=== PATIENT | male | born 1965 | race Caucasian/White ===

== ENCOUNTER 2017-02-11 06:19 | Emergency (ER) | payer BC, MEDICARE ==
[~2017-02-11] VITALS: Ht 177.8 cm; Wt 151.7 kg
[2017-02-11] MEDS ORDERED: ASPI-621 PO (06:38)
[2017-02-11 06:54] LABS: HEMATOCRIT 46.5 % (39.2-51.8); HEMOGLOBIN 15.5 g/dL (13.7-18.0); WHITE BLOOD COUNT 6.9 x10^3/uL (3.4-10)
[2017-02-11] MEDS ORDERED: SODIUM CHLORIDE FLUSH 10ML SYR IVF ONE (07:00)
[2017-02-11 07:06] LABS: ASPARTATE AMINO TRANSFERASE 27 U/L (15-37); BLOOD UREA NITROGEN 16 mg/dL (7-18)
[2017-02-11 07:10] LABS: IS PT STATUS REG ER OR PRE ER? YES
[2017-02-11] MEDS ORDERED: MAALOX/HYOSCYAMINE/LIDOCAINE 45 ML BTL ONE (07:29)
[2017-02-11] MEDS ORDERED: MAALOX/HYOSCYAMINE/LIDOCAINE 45 ML BTL PO ONE (07:30)
[2017-02-11] MEDS ORDERED: OMNIPAQUE 350 MG/ML, 150 ML BOTTLE ONE (08:00)
[2017-02-11 09:00] VITALS: BP 119/85
== END 2017-02-11 09:02 | disposition home or self-care (01) ==
LOC: ED 07:04
DX: R07.89 Other chest pain (principal); K21.9 Gastro-esophageal reflux disease without esophagitis
CPT/HCPCS: 36415; 71010; 71275; 80053; 83880; 84484; 85025; 85610; 85730; 93005; 99285; Q9967

== ENCOUNTER 2017-02-14 15:15 | Inpatient (IN) | payer MEDICARE ==
[~2017-02-14] VITALS: Ht 180.3 cm; Wt 149.9 kg
[~2017-02-14 15:15] MED LIST: ASPI-621 PO
[2017-02-14] MEDS ORDERED: SODIUM CHLORIDE 0.9% 1,000 ML IV ONE (15:26)
[2017-02-14] MEDS ORDERED: SODIUM CHLORIDE FLUSH 10ML SYR IVF ONE (15:30)
[2017-02-14] MEDS ORDERED: ASPIRIN 81 MG TABLET CHEW PO ONE (15:30)
[2017-02-14 15:52] LABS: HEMOGLOBIN 15.9 g/dL (13.7-18.0); WHITE BLOOD COUNT 9.7 x10^3/uL (3.4-10)
[2017-02-14 16:00] LABS: ASPARTATE AMINO TRANSFERASE 42 U/L (15-37); BLOOD UREA NITROGEN 16 mg/dL (7-18)
[2017-02-14 16:10] LABS: IS PT STATUS REG ER OR PRE ER? YES
[2017-02-14] MEDS ORDERED: ASPIRIN 81 MG TABLET CHEW ONE (16:14)
[2017-02-14] MEDS ORDERED: MAALOX/HYOSCYAMINE/LIDOCAINE 45 ML BTL ONE (16:36)
[2017-02-14] MEDS ORDERED: MAALOX/HYOSCYAMINE/LIDOCAINE 45 ML BTL PO ONE (17:00)
[2017-02-14] MEDS ORDERED: morphine SULFATE 10 MG/ML, 1ML IVPush PRN (17:30)
[2017-02-14] MEDS ORDERED: POLYETHYLENE GLYCOL 17 GM PACKET PO PRN (17:30)
[2017-02-14] MEDS ORDERED: DOCUSATE 100 MG CAPSULE PO PRN (17:30)
[2017-02-14] MEDS ORDERED: ASPIRIN 81 MG TABLET EC PO SCH (17:30)
[2017-02-14] MEDS ORDERED: HYDROcodone/APAP 5/325 TABLET PO PRN (17:30)
[2017-02-14] MEDS ORDERED: BISACODYL 10 MG SUPP PR PRN (17:30)
[2017-02-14] MEDS ORDERED: ONDANSETRON 2MG/ML, 2ML IVPush PRN (17:30)
[2017-02-14] MEDS ORDERED: ACETAMINOPHEN 325 MG TABLET PO PRN (17:30)
[2017-02-14] MEDS ORDERED: LABETALOL 5MG/ML, 20ML IVPush PRN (17:30)
[2017-02-14] MEDS: ENOXAPARIN 40 MG/0.4 ML SQ SCH (20:22)
[2017-02-14] MEDS: SODIUM CHLORIDE FLUSH 10ML SYR IVF SCH (20:22)
[2017-02-14 20:47] LABS: IS PT STATUS REG ER OR PRE ER? NO
[2017-02-14 22:42] VITALS: BP 137/85
[2017-02-15 00:57] VITALS: BP 149/96
[2017-02-15 04:02] LABS: IS PT STATUS REG ER OR PRE ER? NO
[2017-02-15] MEDS ORDERED: REGADENOSON 0.4 MG/5 ML SYRINGE ONE (08:03)
[2017-02-15 08:07] VITALS: BP 124/85
[2017-02-15] MEDS: SODIUM CHLORIDE FLUSH 10ML SYR IVF SCH ×2 (11:36→21:21)
[2017-02-15 12:09] VITALS: BP 149/90
[2017-02-15 19:59] VITALS: BP 127/85
[2017-02-15] MEDS: ENOXAPARIN 40 MG/0.4 ML SQ SCH (21:21)
[2017-02-16 02:08] VITALS: BP 117/80
[2017-02-16] MEDS: SODIUM CHLORIDE FLUSH 10ML SYR IVF SCH ×2 (08:07→20:20)
[2017-02-16] MEDS ORDERED: SODIUM CHLORIDE 0.9% 1,000 ML IV SCH (10:54)
[2017-02-16 14:13] VITALS: BP 121/80
[2017-02-16 19:10] VITALS: BP 137/87
[2017-02-16] MEDS: ENOXAPARIN 40 MG/0.4 ML SQ SCH (20:20)
[2017-02-17 02:00] VITALS: BP 118/81
[2017-02-17 05:00] LABS: WHITE BLOOD COUNT 9.9 x10^3/uL (3.4-10)
[2017-02-17 05:12] LABS: BLOOD UREA NITROGEN 21 mg/dL (7-18)
[2017-02-17 07:41] VITALS: BP 116/78
[2017-02-17] MEDS: SODIUM CHLORIDE FLUSH 10ML SYR IVF SCH ×2 (09:00→21:25)
[2017-02-17] MEDS ORDERED: TICAGRELOR 90 MG TABLET ONE (14:15)
[2017-02-17] MEDS ORDERED: MIDAZOLAM 1 MG/ML, 5ML ONE (14:15)
[2017-02-17] MEDS ORDERED: HEPARIN 1,000 UNITS/ML, 10ML ONE (14:15)
[2017-02-17] MEDS ORDERED: VERAPAMIL 2.5 MG/ML, 2ML ONE (14:15)
[2017-02-17] MEDS ORDERED: LIDOCAINE 2%, 20ML ONE (14:15)
[2017-02-17] MEDS ORDERED: BIVALIRUDIN 250 MG ONE (14:15)
[2017-02-17] MEDS ORDERED: FENTANYL PF 100 MCG/2ML ONE (14:15)
[2017-02-17 20:00] VITALS: BP 119/78
[2017-02-17 20:30] VITALS: BP 129/85
[2017-02-17] MEDS: ENOXAPARIN 40 MG/0.4 ML SQ SCH (21:25)
[2017-02-18 01:48] VITALS: BP 129/86
[2017-02-18 05:54] LABS: HEMATOCRIT 46.3 % (39.2-51.8); HEMOGLOBIN 15.7 g/dL (13.7-18.0); WHITE BLOOD COUNT 12.1 x10^3/uL (3.4-10)
[2017-02-18 06:09] LABS: BLOOD UREA NITROGEN 22 mg/dL (7-18)
[2017-02-18 07:01] VITALS: BP 129/77
[2017-02-18] MEDS: SODIUM CHLORIDE FLUSH 10ML SYR IVF SCH (09:00)
== END 2017-02-18 13:05 | disposition home or self-care (01) | DRG 287 ==
LOC: ED 17:20 → EDIP 17:21 → ED 18:07 → 5SO 18:54 → INTOOBSV 02-17 08:47 → OBSVTOIN 02-17 08:47 → DCLOUNGE 02-18 12:58
PROVIDERS: ADMIT Internal Medicine; ATTEND Internal Medicine
PROC: 4A023N7 Measurement of Cardiac Sampling and Pressure, Left Heart, Percutaneous Approach (ICD-10-PCS; principal; 2017-02-17)
PROC: B2111ZZ Fluoroscopy of Multiple Coronary Arteries using Low Osmolar Contrast (ICD-10-PCS; 2017-02-17)
PROC: B2151ZZ Fluoroscopy of Left Heart using Low Osmolar Contrast (ICD-10-PCS; 2017-02-17)
DX: R07.89 Other chest pain (principal); E66.01 Morbid (severe) obesity due to excess calories; Z68.42 Body mass index [BMI] 45.0-49.9, adult; E78.5 Hyperlipidemia, unspecified; I71.4 Abdominal aortic aneurysm, without rupture; Z77.090 Contact with and (suspected) exposure to asbestos; Z86.79 Personal history of other diseases of the circulatory system; Z87.891 Personal history of nicotine dependence; Z80.9 Family history of malignant neoplasm, unspecified; Z90.89 Acquired absence of other organs; J06.9 Acute upper respiratory infection, unspecified
CPT/HCPCS: 36415; 71010; 78452; 80048; 80053; 80061; 83880; 84484; 85025; 85379; 85610; 93005; 93017; 93458; 99156; 99157; 99285; C1769; C1894; G0378; J0583; J1644; J1650; J2250; J2785; J3010; J3490; A9502; C9898; J2270; J7030; Q9967

== ENCOUNTER 2019-01-21 16:07 | Outpatient (CLI) | payer MEDICARE ==
[~2019-01-21 16:07] MED LIST changes: -ASPI-621 PO; +ASPI81TA45 PO
== END 2019-01-21 23:59 | disposition home or self-care (01) ==
LOC: CARD 16:07 → RAD 23:59
PROVIDERS: ATTEND Radiology Diagnostic Radiology
DX: J94.1 Fibrothorax (principal); J98.6 Disorders of diaphragm
CPT/HCPCS: 71045; 94060; 94726; 94729